=== PATIENT | female | born 1950 | race African-American/Black ===

== ENCOUNTER 2020-10-09 10:41 | Emergency (ER) | payer MEDICAID ==
[~2020-10-09] VITALS: Ht 165.1 cm; Wt 84.1 kg
[2020-10-09] MEDS ORDERED: GLIP10 PO (10:54)
[2020-10-09] MEDS ORDERED: METF-960 PO (10:55)
[2020-10-09] MEDS ORDERED: GABA-1216 PO (10:55)
[2020-10-09] MEDS ORDERED: SITA50 PO (10:56)
[2020-10-09] MEDS ORDERED: FAMO20 PO (10:56)
[2020-10-09 11:55] LABS: GLUCOSE,POINT OF CARE 257 MG/DL (70-110)
[2020-10-09] MEDS ORDERED: CefTRIAXone SODIUM 1 GM/VIAL IM ONE (12:30)
[2020-10-09] MEDS ORDERED: LIDOCAINE 1% 10 ML VIAL SQ ONE (12:30)
[2020-10-09] MEDS ORDERED: LIDOCAINE/PF 1% 2 ML VIAL IM ONE (12:30)
[2020-10-09 13:45] VITALS: BP 143/76
== END 2020-10-09 14:00 | disposition home or self-care (01) ==
LOC: EMS 10:44
DX: S92.421A Displaced fracture of distal phalanx of right great toe, initial encounter for closed fracture (principal); S91.111A Laceration without foreign body of right great toe without damage to nail, initial encounter; E11.9 Type 2 diabetes mellitus without complications; W23.0XXA Caught, crushed, jammed, or pinched between moving objects, initial encounter; Y93.01 Activity, walking, marching and hiking; Y92.098 Other place in other non-institutional residence as the place of occurrence of the external cause; Y99.8 Other external cause status
CPT/HCPCS: 12001; 73660; 82962; 96372; 99283; J0696; J3490 ×2

== ENCOUNTER 2020-10-19 14:14 | Emergency (ER) | payer MEDICAID ==
[~2020-10-19] VITALS: Ht 165.1 cm; Wt 86.4 kg
[~2020-10-19 14:14] MED LIST: FAMO20 PO; GABA-1216 PO; GLIP10 PO; METF-960 PO; SITA50 PO
[2020-10-19 16:22] VITALS: BP 151/79
== END 2020-10-19 16:40 | disposition home or self-care (01) ==
LOC: EMS 14:26
DX: S91.111D Laceration without foreign body of right great toe without damage to nail, subsequent encounter (principal); E11.9 Type 2 diabetes mellitus without complications; X58.XXXD Exposure to other specified factors, subsequent encounter
CPT/HCPCS: Z7502

== ENCOUNTER 2020-12-11 10:19 | Emergency (ER) | payer MEDICAID ==
[~2020-12-11] VITALS: Ht 170.2 cm; Wt 97.7 kg
[2020-12-11] MEDS ORDERED: NAPROXEN 250 MG TABLET PO ONE (11:15)
[2020-12-11 11:38] LABS: GLUCOSE,POINT OF CARE 285 MG/DL (70-110)
[2020-12-11 12:42] VITALS: BP 140/101
== END 2020-12-11 13:25 | disposition home or self-care (01) ==
LOC: EMS 10:19
DX: S83.91XA Sprain of unspecified site of right knee, initial encounter (principal); E11.9 Type 2 diabetes mellitus without complications; E78.00 Pure hypercholesterolemia, unspecified; Z79.84 Long term (current) use of oral hypoglycemic drugs; W19.XXXA Unspecified fall, initial encounter; Y93.89 Activity, other specified; Y92.89 Other specified places as the place of occurrence of the external cause; Y99.8 Other external cause status
CPT/HCPCS: 29505; 99283

== ENCOUNTER 2021-09-22 09:17 | Emergency (ER) | payer MEDICAID ==
[~2021-09-22] VITALS: Ht 167.6 cm; Wt 90.9 kg
[~2021-09-22 09:17] MED LIST changes: +METF-1211 PO; -METF-960 PO
[2021-09-22] MEDS ORDERED: ONDANSETRON HCL 4 MG/2 ML VIAL IVP ONE (10:45)
[2021-09-22] MEDS ORDERED: SODIUM CHLORIDE 0.9% 1,000 ML IV ONE (10:45)
[2021-09-22 11:08] LABS: COVID AG,FIA SOURCE NASAL SWAB
[2021-09-22 11:55] LABS: BASOPHILS % (AUTO) 0.4 % (0.0-2.0); EOSINOPHILS % (AUTO) 0 % (1.0-6.0); HEMATOCRIT 40.6 % (36-46); HEMOGLOBIN 13.7 g/dL (12.0-16.0); LYMPHOCYTES # (AUTO) 0.7 K/uL (1.0-4.8); LYMPHOCYTES % (AUTO) 8.7 % (22.0-44.0); MEAN CORPUSCULAR HEMOGLOBIN 28.7 pg (26.0-34.0); MEAN CORPUSCULAR HGB CONC 33.8 G/dL (31.0-37.0); MEAN CORPUSCULAR VOLUME 85 fL (80-100); MONOCYTES # (AUTO) 0.8 K/uL (0.1-1.0); MONOCYTES % (AUTO) 9.6 % (2.0-9.0); NEUTROPHILS # (AUTO) 6.6 K/uL (1.8-7.7); NEUTROPHILS % (AUTO) 81.3 % (40.0-70.0); PLATELET COUNT (AUTO) 253 K/uL (150-450); RED BLOOD CELL COUNT(AUTO) 4.78 MIL/uL (4.00-5.20); RED CELL DISTRIBUTION WIDTH 13.2 % (11.5-14.5)
[2021-09-22 11:59] LABS: ANION GAP 10 mmol/L (8-16); CALCIUM, TOTAL 8.3 mg/dL (8.8-10.5); CARBON DIOXIDE 25 mmol/L (22-29); CHLORIDE 99 mmol/L (98-107); CREATININE 0.98 mg/dL (0.60-1.30); GLOMERULAR FILTR. RATE CALC > 60 mL/min (>60); GLUCOSE,RANDOM 306 mg/dL (70-110); POTASSIUM 3.4 mmol/L (3.5-5.1); SODIUM SERUM 134 mmol/L (136-145); UREA NITROGEN, BLOOD 18 mg/dL (7-18)
[2021-09-22 12:10] LABS: ALANINE AMINOTRANSFERASE 11 U/L (12-78); ALBUMIN 2.6 g/dL (3.4-5.0); ALKALINE PHOSPHATASE 52 U/L (46-116); ASPARTATE AMINOTRANSFERASE 17 U/L (15-37); BILIRUBIN,TOTAL 0.4 mg/dL (0.1-1.0); THYROID STIMULATING HORMONE 0.57 uIU/mL (0.36-3.74)
[2021-09-22 14:02] VITALS: BP 94/56
== END 2021-09-22 14:55 | disposition home or self-care (01) ==
LOC: EMS 09:17
DX: U07.1 COVID-19 (principal); I51.7 Cardiomegaly; E11.9 Type 2 diabetes mellitus without complications; E78.00 Pure hypercholesterolemia, unspecified; Z79.84 Long term (current) use of oral hypoglycemic drugs
CPT/HCPCS: 71045; 80053; 84443; 84484; 85025; 87426; 93005; 96361; 96374; 99285; J2405; J7030; 36415-L1; 36415-TC